=== PATIENT | female | born 1975 | race Caucasian/White ===

== ENCOUNTER 2023-12-29 07:12 | Day surgery (SDC) | payer OTHER ==
[2023-12-21 12:00] LABS: BILIRUBIN,URINE NEGATIVE (Neg); COLOR,URINE YELLOW (Yellow); GLUCOSE, URINE NEGATIVE (Neg); KETONES,URINE NEGATIVE (Neg); LEUKOCYTE ESTERASE ,URINE NEGATIVE (Neg); NITRITES, URINE NEGATIVE (Neg); OCCULT BLOOD,URINE TRACE-INTACT (Neg); PROTEIN,URINE NEGATIVE (Neg); UROBILINOGEN,URINE 0.2 E.U/dL (0.2-1.0)
[2023-12-21 12:05] LABS: BASOPHILS % (AUTO) 0.3 % (0-1); CLARITY,URINE SLIGHTLY CLOUDY (Clear); EOSINOPHILS # (AUTO) 0.1 X10'3 (0-0.9); EOSINOPHILS % (AUTO) 1.1 % (0-6); LYMPHOCYTES # (AUTO) 2.6 X10'3 (1.1-4.8); LYMPHOCYTES % (AUTO) 26.7 % (21-51); MEAN CORPUSCULAR HEMOGLOBIN 28.5 PG (27.0-31.0); MEAN CORPUSCULAR HGB CONC 33.6 g/dL (33.0-36.5); MEAN PLATELET VOLUME 8.3 FL (7.4-10.4); MONOCYTES # (AUTO) 0.4 X10'3 (0-0.9); NEUTROPHILS # (AUTO) 6.6 X10'3 (1.8-7.7); NEUTROPHILS % (AUTO) 67.9 % (42-75); PRE OP HEMOGLOBIN 13.8 g/dL (12.0-16.0); PRE OP PLATELET COUNT 254 X10'3 (140-440); PRE OP WHITE BLOOD COUNT 9.8 10'3 (4.8-10.8); RED BLOOD COUNT 4.83 X10'6 (4.20-5.60); RED CELL DISTRIBUTION WIDTH 12.6 % (11.5-14.5); UA COLLECTION TYPE CLN CATCH MIDSTREAM
[2023-12-21 12:14] LABS: ALBUMIN 3.9 G/DL (3.4-5.0); ALBUMIN/GLOBULIN RATIO 1.1 (1.1-1.5); ALKALINE PHOSPHATASE 82 IU/L (46-116); BLOOD UREA NITROGEN 14 MG/DL (7-18); BUN/CREATININE RATIO 16.1 (10.0-20.0); CALCIUM 8.9 MG/DL (8.5-10.1); CHLORIDE 105 MMOL/L (99-107); CREATININE 0.87 MG/DL (0.40-0.90); PRE OP ALT 26 U/L (30-65); PRE OP ANION GAP 8 (8-16); PRE OP AST 20 U/L (10-37); PRE OP BILIRUB, TOTAL 0.3 MG/DL (0.0-1.0); PRE OP GLUCOSE 75 MG/DL (70-104); PRE OP POTASSIUM 3.8 MMOL/L (3.4-5.1); PRE OP SODIUM 142 MMOL/L (135-145); TOTAL CARBON DIOXIDE 29.3 MMOL/L (24-32); TOTAL PROTEIN 7.5 G/DL (6.4-8.2); eGFR 70 ML/MIN
[2023-12-21 12:16] LABS: BACTERIA,URINE NONE SEEN /HPF (Neg); RBC,URINE 0-2 /HPF (0-2); SQUAMOUS EPITHELIAL CELL,UR FEW /LPF (FEW); WBC,URINE 0-4 /HPF (0-4)
[~2023-12-29] VITALS: Ht 165.1 cm; Wt 90.3 kg
[2023-12-29] VITALS (10 sets, daily range): BP systolic 106–126; BP diastolic 62–92; PULSE 63–83; RESP 13–22; TEMP 97.5; O2SAT 94–99
[~2023-12-29 07:12] MED LIST: IBUP-1986 PO; METH-797 PO; SUMA50TA17 PO; ceFAZolin 2gm in dextrose, iso 50 ML IV ONE; famotidine 20mg tablet PO ONE; ringers solution, lacted 1,000 ML IV SCH
[2023-12-29] MEDS ORDERED: bacitracin 15gm ointment TP ONE (09:12)
[2023-12-29] MEDS ORDERED: ROPIVAcaine 0.5% (5mg/ml) 30ml vial ONE (09:24)
[2023-12-29] MEDS ORDERED: fentaNYL/PF 50MCG/1 ML 2ML syringe ONE (09:24)
[2023-12-29] MEDS ORDERED: ondansetron/PF 4mg/2ml inj ONE (09:40)
[2023-12-29] MEDS ORDERED: propofol inj 20 ML IV ONE (09:40)
[2023-12-29] MEDS ORDERED: dexamethasone sod phosphate 4mg/ml inj. ONE (09:40)
[2023-12-29] MEDS ORDERED: LIDOcaine 2% (20mg/ml) 5ml vial ONE (09:40)
[2023-12-29] MEDS ORDERED: sevoflurane 250ml liquid IH ONE (10:50)
[2023-12-29] MEDS: acetaminophen 1,000mg/100ml IV 100 ML IV ONE (13:58)
== END 2023-12-29 14:21 | disposition home or self-care (01) ==
LOC: PAS 07:12
PROVIDERS: ATTEND Podiatrist Foot & Ankle Surgery
DX: M25.371 Other instability, right ankle (principal); M65.871 Other synovitis and tenosynovitis, right ankle and foot; G89.18 Other acute postprocedural pain; M25.571 Pain in right ankle and joints of right foot; M25.471 Effusion, right ankle; M19.071 Primary osteoarthritis, right ankle and foot; M72.2 Plantar fascial fibromatosis; G43.909 Migraine, unspecified, not intractable, without status migrainosus; Z79.1 Long term (current) use of non-steroidal anti-inflammatories (NSAID); Z79.82 Long term (current) use of aspirin; Z79.899 Other long term (current) drug therapy; Z90.49 Acquired absence of other specified parts of digestive tract; Z98.51 Tubal ligation status; Z91.041 Radiographic dye allergy status
CPT/HCPCS: 27695; 27829; 36415; 64447; 64450; 73600; 80053; 81001; 82948; 85025; A6222; C1713; J0131; J0690; J1100; J2003; J2405; J2704; J2795; J3010; J7120; Z7506; Z7508; Z7512; 76000; A4618; A6449; A7000

== ENCOUNTER 2024-02-14 10:28 | Emergency (ER) | payer OTHER ==
[~2024-02-14] VITALS: Ht 167.6 cm; Wt 90.5 kg
[~2024-02-14 10:28] MED LIST changes: -ceFAZolin 2gm in dextrose, iso 50 ML IV ONE; -famotidine 20mg tablet PO ONE; -ringers solution, lacted 1,000 ML IV SCH
[2024-02-14 10:45] VITALS: BP 137/75; PULSE 18; RESP 16; O2SAT 98
[2024-02-14 14:09] VITALS: TEMP 97.8
== END 2024-02-14 14:10 | disposition home or self-care (01) ==
LOC: ER 10:29
DX: M79.661 Pain in right lower leg (principal); Z88.8 Allergy status to other drugs, medicaments and biological substances
CPT/HCPCS: 93971; 99284